=== PATIENT | male | born 1955 | race Caucasian/White ===

== ENCOUNTER 2018-08-26 07:22 | Day surgery (SDC) | payer BC ==
[2018-08-23 11:15] VITALS: BMI 27.2
[2018-08-26 08:55] LABS: #Basophils 0.1 thou/uL (0.0-0.2); #Eosinphils 0.2 thou/uL (0.0-0.7); #Lymphocytes 2.2 thou/uL (1.20-3.40); #Monocytes 0.6 thou/uL (0.11-0.59); #Neutrophils 4.4 thou/uL (1.40-6.50); %Basophils 1.2 % (0.0-1.0); %Eosinophils 2.1 % (0.0-10.0); %Lymphocytes 29.5 % (21.0-51.0); %Monocytes 8.4 % (0.0-10.0); %Neutrophils 58.8 % (42.0-75.0); Hemoglobin 12.6 g/dL (14.0-18.0); Mean Corpuscular HGB CONC 30.4 g/dL (32.0-36.0); Mean Corpuscular Hemoglobin 28.6 pg (27.0-31.0); Mean Platelet Volume 8.1 fL (7.4-10.4); Platelet Count 193 thou/uL (130-400); RBC Distribution Width 11.9 % (11.5-14.5); Red Blood Cell (RBC) Count 4.41 mill/uL (4.70-6.10); White Blood Cell (WBC) Count 7.4 thou/uL (4.8-10.8)
[2018-08-26 09:01] LABS: INR-International Normal Ratio 1.1; Prothrombin Time 14.7 SEC (12.0-14.7)
[2018-08-26 09:07] LABS: PTT 35.1 SEC (22.9-36.1)
[2018-08-26 09:13] LABS: ALT (SGPT) 13 U/L (8-55); AST (SGOT) 14 U/L (5-34); Albumin 3.7 g/dL (3.4-4.8); Alkaline Phosphatase 58 U/L (40-150); Anion Gap 8 mmol/L (10-20); BUN (Urea Nitrogen) 19 mg/dL (8.4-25.7); Bilirubin, Total 0.4 mg/dL (0.2-1.2); Calc. Creatinine Clearance 114 mL/min (70-130); Calcium 9.1 mg/dL (7.8-10.44); Carbon Dioxide 30 mmol/L (23-31); Chloride 105 mmol/L (98-107); Estimated GFR-MDRD Greater than 90; Globulin 2.6 g/dL (2.4-3.5); Glucose 98 mg/dL (80-115); Potassium 4.9 mmol/L (3.5-5.1); Protein, Total 6.3 g/dL (5.8-8.1); Sodium 138 mmol/L (136-145)
[2018-08-26] MEDS ORDERED: PROPOFOL 20 ML ONE (09:26)
--- NOTE | 2018-08-26 10:29 | OP ---
DATE OF PROCEDURE: 08/26/2018 REASON FOR PROCEDURE: Mr. Dumont is a 63-year-old man with history of atrial arrhythmias, prior access ablation in August 2014, who is now back on Xarelto, remote history of left atrial appendage isolation. He has recurrent atypical atrial flutter and here for cardioversion. DESCRIPTION OF PROCEDURE: The patient received propofol by Anesthesia specialist. After adequate level of sedation achieved, a 50 joule synchronized shock promptly converted the patient back to sinus rhythm. CONCLUSIONS: Successful cardioversion. PLAN: Continue Xarelto and routine monitoring. Job ID: [id number]
[2018-08-26] MEDS ORDERED: PROPOFOL 200 MG/20 ML VIAL ONE (15:06)
--- NOTE | 2018-08-27 22:26 | EKG ---
Test Reason : PREOP CARDIOVERSION Blood Pressure : / mmHG Vent. Rate : 081 BPM Atrial Rate : 286 BPM P-R Int : 000 ms QRS Dur : 086 ms QT Int : 386 ms P-R-T Axes : 090 060 052 degrees QTc Int : 448 ms Atrial flutter with variable A-V block Abnormal ECG When compared with ECG of 23-OCT-2014 11:07, Atrial flutter has replaced Atrial fibrillation Nonspecific T wave abnormality no longer evident in Inferior leads T wave amplitude has increased in Anterior leads Confirmed by Aleks KRAUSE ([id number]) on 08/27/2018 10:26:26 PM Referred By: [facility] Confirmed By:Aleks KRAUSE
== END 2018-08-26 11:00 | disposition home or self-care (01) ==
LOC: CCL 07:22
PROVIDERS: ATTEND Internal Medicine Cardiovascular Disease
PROC: 5A2204Z Restoration of Cardiac Rhythm, Single (ICD-10-PCS; principal; 2018-08-26)
DX: I48.4 Atypical atrial flutter (principal); I48.1 Persistent atrial fibrillation; E78.00 Pure hypercholesterolemia, unspecified; Z79.01 Long term (current) use of anticoagulants; Z79.82 Long term (current) use of aspirin; Z79.899 Other long term (current) drug therapy; Z98.890 Other specified postprocedural states
CPT/HCPCS: 80053; 85025; 85610; 85730; 92960; 93005; 93010; J2704

== ENCOUNTER 2019-09-15 17:51 | Inpatient (IN) | payer BC ==
[2019-09-15 18:58] LABS: #Basophils 0.1 thou/uL (0.0-0.2); #Lymphocytes 1.5 thou/uL (1.20-3.40); #Monocytes 0.6 thou/uL (0.11-0.59); #Neutrophils 6.2 thou/uL (1.40-6.50); %Basophils 0.8 % (0.0-1.0); %Eosinophils 0.4 % (0.0-10.0); %Lymphocytes 18.1 % (21.0-51.0); %Monocytes 7.3 % (0.0-10.0); %Neutrophils 73.4 % (42.0-75.0); Hemoglobin 12.6 g/dL (14.0-18.0); Mean Corpuscular HGB CONC 32.6 g/dL (32.0-36.0); Mean Corpuscular Hemoglobin 30.9 pg (27.0-31.0); Mean Corpuscular Volume 94.9 fL (78.0-98.0); Mean Platelet Volume 8.7 fL (7.4-10.4); Platelet Count 195 thou/uL (130-400); RBC Distribution Width 11.6 % (11.5-14.5); Red Blood Cell (RBC) Count 4.07 mill/uL (4.70-6.10); White Blood Cell (WBC) Count 8.5 thou/uL (4.8-10.8)
[2019-09-15 19:19] LABS: ALT (SGPT) 11 U/L (8-55); AST (SGOT) 19 U/L (5-34); Albumin 3.8 g/dL (3.4-4.8); Alkaline Phosphatase 60 U/L (40-110); Anion Gap 11 mmol/L (10-20); BUN (Urea Nitrogen) 15 mg/dL (8.4-25.7); Bilirubin, Total Less than 0.2 mg/dL (0.2-1.2); CK (CPK) 102 U/L (30-200); Calc. Creatinine Clearance 0 mL/min (70-130); Carbon Dioxide 27 mmol/L (23-31); Chloride 103 mmol/L (98-107); Estimated GFR-MDRD 86; Globulin 2.7 g/dL (2.4-3.5); Glucose 150 mg/dL (80-115); Lipase 29 U/L (8-78); Potassium 3.9 mmol/L (3.5-5.1); Protein, Total 6.5 g/dL (5.8-8.1); Sodium 137 mmol/L (136-145)
--- NOTE | 2019-09-15 19:30 | RAD ---
ONE VIEW CHEST: History: Chest pain, back pain. Comparison: None FINDINGS: Cardiac silhouette is magnified by projection. Pulmonary vasculature is within normal limits. The ruthie gs are clear. Osseous structures have a normal appearance. Degenerative changes are seen in the spine . IMPRESSION: No acute cardiopulmonary process. POS: TATA
[2019-09-15] MEDS ORDERED: Ondansetron ODT 4 MG TAB ONE (20:13)
[2019-09-15] MEDS ORDERED: Nitroglycerin 0.4 MG TAB (25 Tab Bottle) PO PRN (20:43)
--- NOTE | 2019-09-15 20:56 | PDOC.HHP ---
Hospitalist HPI - History of Present Illness Chest Pain History of Present Illness: PCP: Olive Servin Project Architect: Aleks Maruqis The patient is a 64/M with PMH significant for atrial fibrillation with ablations x 3 that presents to the ER for the above complaint. The patient reports waking in usual health this morning. Reports riding his bike for approximately 4 miles with his spouse. Then this evening, after drinking some coffee, he developed acute onset of midsternal chest pain, radiating to his back , describes as "tightening up", with associated sob and light headedness. Exacerbated and relieved by nothing. Denies heart palpitations and LE extremity swelling or pain. Denies cough and wheezing. His spouse drove him to [place], where he was evaluated by EMS. There, he was found to be hyperventilating. Reports his bilateral hands felt numb. He was instructed to slow his breathing. Reports given an aspirin and SL nitro x 2 sprays with relief of his symptoms. He was transfered to our ER. Denies fever or chills. Denies any history of COPD or asthma, DVT/PE, denies using any illicit drugs. Denies any abdominal pain, n/v/d. ED Course: VS 98.7F, 113/79, 61, 18, 96%RA Pain 0/[address] elevations CXR no acute process Trop 0.024 CK 102 Allergies: NKDA Home Medications: ASA 81mg po daily Hospitalist ROS - Review of Systems Constitutional: denies: fever, chills, sweats, weakness, malaise, other Eyes: denies: pain, vision change, conjunctivae inflammation, eyelid inflammation, redness, other ENT: denies: ear pain, ear discharge, nose pain, nose discharge, nose congestion , mouth pain, mouth swelling, throat pain, throat swelling, other Respiratory: denies: cough, dry, shortness of breath, hemoptysis, SOB with excertion, pleuritic pain, sputum, wheezing, other Cardiovascular: reports: chest pain (radiating to back), light headedness. denies: palpitations, orthopnea, paroxysmal noc. dyspnea, edema Gastrointestinal: denies: nausea, vomiting, abdominal pain, diarrhea, constipation, melena, hematochezia, other Genitourinary: denies: dysuria, frequency, incontinence, hematuria, retention, other Skin: denies: rash, bruising Neurological: reports: other (bilateral hand numbness). denies: weakness, incoordination, change in speech Hospitalist History - Past Medical History Source: patient Cardiac: reports: AFIB - Past Surgical History Past Surgical History: reports: Cataract Removal, Other (cardiac ablations x 3) - Family History Family History: reports: cardiac disorder - Social History Smoking Status: Never smoker Alcohol: reports: None Drugs: reports: none Living Situation: With Family Occupation: Lives with spouse in [facility], retired Activity level: independent ambulation - Exam General Appearance: NAD, awake alert Eye: anicteric sclera ENT: normocephalic atraumatic Neck: supple, no JVD Heart: RRR, no murmur, no gallops, no rubs, normal peripheral pulses Respiratory: CTAB, no wheezes, no rales, no ronchi, no tachypnea Gastrointestinal: soft, non-tender, normal bowel sounds, no guarding, no rigidity Extremities: no cyanosis, no edema Skin: no rashes Neurological: no focal deficits Musculoskeletal: normal tone, normal strength Psychiatric: normal affect, A&O x 3 Hospitalist Results - Labs Result Diagrams: 09/15/19 18:47 09/15/19 18:47 Lab results: WBC 8.5 thou/uL (4.8-10.8) 09/15/19 18:47 Hgb 12.6 g/dL (14.0-18.0) L 09/15/19 18:47 Hct 38.6 % (42.0-52.0) L 09/15/19 18:47 MCV 94.9 fL (78.0-98.0) 09/15/19 18:47 Plt Count 195 thou/uL (130-400) 09/15/19 18:47 Neutrophils % 73.4 % (42.0-75.0) 09/15/19 18:47 Sodium 137 mmol/L (136-145) 09/15/19 18:47 Potassium 3.9 mmol/L (3.5-5.1) 09/15/19 18:47 Chloride 103 mmol/L (98-107) 09/15/19 18:47 Carbon Dioxide 27 mmol/L (23-31) 09/15/19 18:47 BUN 15 mg/dL (8.4-25.7) 09/15/19 18:47 Creatinine 0.90 mg/dL (0.7-1.3) 09/15/19 18:47 Glucose 150 mg/dL (80-115) H 09/15/19 18:47 Calcium 9.0 mg/dL (7.8-10.44) 09/15/19 18:47 Total Bilirubin Less than 0.2 mg/dL (0.2-1.2) L 09/15/19 18:47 AST 19 U/L (5-34) 09/15/19 18:47 ALT 11 U/L (8-55) 09/15/19 18:47 Alkaline Phosphatase 60 U/L (40-110) 09/15/19 18:47 Creatine Kinase 102 U/L (30-200) 09/15/19 18:47 Troponin I 0.024 ng/mL (< 0.028) 09/15/19 18:47 Serum Total Protein 6.5 g/dL (5.8-8.1) 09/15/19 18:47 Albumin 3.8 g/dL (3.4-4.8) 09/15/19 18:47 Lipase 29 U/L (8-78) 09/15/19 18:47 - EKG Interpretation EKG: NSR - Radiology Interpretation Chest x-ray Status: report reviewed by nh Hospitalist H&P A/P - Problem (1) Chest pain Code(s): R07.9 - CHEST PAIN, UNSPECIFIED Status: Acute Assessment and Plan: Admit to telemetry floor, observation status Expected length of stay < 2 midnights Upon exam, chest pain resolved, trop IND. HEART SCORE 2, low risk Trend troponins NM stress test Echocardiogram Consult cardiology Continue ASA Check TSH, BNP, FLP, Mag NPO after midnight (2) Dyspnea Code(s): R06.00 - DYSPNEA, UNSPECIFIED Status: Acute Assessment and Plan: CXR negative Likely Secondary to Problem #1 (3) History of atrial fibrillation Code(s): Z86.79 - PERSONAL HISTORY OF OTHER DISEASES OF THE CIRCULATORY SYSTEM Status: Chronic Assessment and Plan: History of ablations x 3 EKG NSR Will order echocardiogram and consult cardiology Will Continue cardiac monitoring. - Plan Plan: Consult walking program Pepcid GI prophylaxis SCDs for DVT prophylaxis Full Code DPOA is Esperanza Dumont at [phone] Velasco
[2019-09-15] MEDS ORDERED: Aspirin 325 MG TAB PO SCH (21:00)
[2019-09-15 22:22] LABS: Troponin I 0.256 ng/mL (< 0.028)
[2019-09-15 22:48] VITALS: BMI 26.4
[2019-09-16] MEDS ORDERED: Enoxaparin Sodium 40 MG/0.4 ML SYRINGE SC SCH (00:45)
[2019-09-16] MEDS: Famotidine 20 MG TAB PO SCH ×3 (01:42→20:11)
[2019-09-16 01:45] LABS: Troponin I 1.086 ng/mL (< 0.028)
[2019-09-16] MEDS: Nitroglycerin 2% Ointment 1 INCH/1 GM Packet TOP SCH ×3 (01:54→17:19)
[2019-09-16] MEDS: Sodium Chloride 0.9% 1,000 ML IV SCH ×2 (01:54→21:15)
[2019-09-16] MEDS ORDERED: Enoxaparin Sodium 80 MG/0.8 ML SYRINGE SC SCH ×2 (02:00→09:00)
[2019-09-16] MEDS ORDERED: Atorvastatin Calcium 40 MG TAB PO SCH ×2 (02:00→21:00)
[2019-09-16 04:53] LABS: #Eosinphils 0.1 thou/uL (0.0-0.7); #Lymphocytes 2.5 thou/uL (1.20-3.40); #Monocytes 0.6 thou/uL (0.11-0.59); #Neutrophils 4.8 thou/uL (1.40-6.50); %Basophils 0.5 % (0.0-1.0); %Eosinophils 0.9 % (0.0-10.0); %Lymphocytes 31.2 % (21.0-51.0); %Monocytes 7.5 % (0.0-10.0); %Neutrophils 59.9 % (42.0-75.0); Hemoglobin 12.8 g/dL (14.0-18.0); Mean Corpuscular HGB CONC 32.6 g/dL (32.0-36.0); Mean Platelet Volume 8.3 fL (7.4-10.4); Platelet Count 198 thou/uL (130-400); RBC Distribution Width 11.7 % (11.5-14.5); Red Blood Cell (RBC) Count 4.14 mill/uL (4.70-6.10); White Blood Cell (WBC) Count 8.1 thou/uL (4.8-10.8)
[2019-09-16 05:27] LABS: Anion Gap 12 mmol/L (10-20); BUN (Urea Nitrogen) 13 mg/dL (8.4-25.7); Calc. Creatinine Clearance 116 mL/min (70-130); Calcium 9.2 mg/dL (7.8-10.44); Carbon Dioxide 27 mmol/L (23-31); Cardiac Risk 3.2 (Less than 4.5); Chloride 105 mmol/L (98-107); Cholesterol 180 mg/dl (< 200 Desired); Estimated GFR-MDRD Greater than 90; Glucose 101 mg/dL (80-115); HDL Cholesterol 56 mg/dL (>60 Neg Risk); LDL Cholesterol, Calculated 114 mg/dL; Potassium 3.5 mmol/L (3.5-5.1); Sodium 140 mmol/L (136-145); Triglycerides 51 mg/dL (Less than 150)
[2019-09-16] MEDS ORDERED: Aspirin 325 mg Enteric Coated Tablet PO SCH (09:00)
[2019-09-16] MEDS ORDERED: Iopamidol 370 76% 50 ML VIAL FS ONE (09:21)
[2019-09-16] MEDS ORDERED: Iopamidol 370 76% 100 ML VIAL ONE (09:21)
[2019-09-16] MEDS: Acetaminophen 325 MG TAB PO PRN ×2 (11:27→17:19)
--- NOTE | 2019-09-16 12:11 | PDOC.HOSPP ---
- Subjective Encounter Date: 09/16/19 Encounter Time: 12:01 Subjective: Mr. Dumont was seen today in follow-up of Chest pain and NSTEMI. He denies any chest pain, shortness of breath. - Objective Vital Signs & Weight: Vital Signs (12 hours) Temp Pulse Resp BP Pulse Ox 09/16/19 07:47 98.1 F 57 L 16 160/77 H 98 09/16/19 04:00 98 F 61 16 118/76 98 09/16/19 02:00 177/86 H 09/16/19 00:21 99 Weight Weight 184 lb I&O: 09/15/19 09/16/19 09/17/19 06:59 06:59 06:59 Intake Total 562.5 Balance 562.5 Result Diagrams: 09/16/19 04:34 09/16/19 04:34 Hospitalist ROS - Medication Medications: Active Medications Generic Name Dose Route Start Last Admin Trade Name Freq PRN Reason Stop Dose Admin Acetaminophen 650 mg 09/15/19 20:46 09/16/19 11:27 Tylenol PO 650 mg Q4H PRN Administration Headache/Fever/Mild Pain (1-3) Enoxaparin Sodium 80 mg 09/16/19 09:00 09/16/19 09:08 Lovenox SC Not Given 0900,2100 HAMLET Famotidine 20 mg 09/15/19 21:00 09/16/19 08:20 Pepcid PO Not Given BID HAMLET Sodium Chloride 1,000 mls @ 75 mls/hr 09/15/19 23:59 09/16/19 01:54 Normal Saline 0.9% IV 1,000 mls .[id number] HAMLET Administration Nitroglycerin 0.5 inch 09/16/19 02:00 09/16/19 10:38 Nitro-Bid 2% Ointment TOP Not Given 0200,1000,1800 HAMLET - Exam Eye: PERRL Heart: RRR, no murmur, no gallops, no rubs, normal peripheral pulses Respiratory: CTAB, no wheezes, no rales Gastrointestinal: soft, non-tender, non-distended, normal bowel sounds Extremities: no cyanosis, no clubbing, no edema Hosp A/P (1) NSTEMI (non-ST elevated myocardial infarction) Code(s): I21.4 - NON-ST ELEVATION (NSTEMI) MYOCARDIAL INFARCTION Status: Acute (2) Chest pain Code(s): R07.9 - CHEST PAIN, UNSPECIFIED Status: Acute (3) Dyspnea Code(s): R06.00 - DYSPNEA, UNSPECIFIED Status: Acute (4) History of atrial fibrillation Code(s): Z86.79 - PERSONAL HISTORY OF OTHER DISEASES OF THE CIRCULATORY SYSTEM Status: Chronic - Plan * NSTEMI- patient currently does not have symptoms * Continue Lovenox, aspirin, Atorvastatin * Heart rate is already, low- and will not require beta-cheyenne * AFIB - he is in sinus, and he is past ablation X3 * Await Cardiology evaluation
--- NOTE | 2019-09-16 14:40 | CON ---
DATE OF CONSULTATION: REASON FOR CONSULTATION: Unstable angina. HISTORY OF PRESENT ILLNESS: Mr. Dumont is a 64-year-old gentleman, who was last seen by Dr. Jaquan Marquis greater than five years ago. He recently presented with acute onset chest pain. This began after exercise. The pain lasted for an hour. He proceeded to the emergency room with the above. His initial troponin was negative. His followup troponin was greater than 1.0. He is currently pain free. He did receive a dose of Lovenox at 2 a.m. PAST MEDICAL HISTORY: Atrial fibrillation, status post ablation and cardioversion. SURGICAL HISTORY: Cataract removal. FAMILY HISTORY: Positive for CAD. SOCIAL HISTORY: No current tobacco or alcohol use. REVIEW OF SYSTEMS: A 10-point review of systems is reviewed as above, otherwise negative. PHYSICAL EXAMINATION: GENERAL: Patient is a pleasant male, who is in no acute distress. The patient appears their stated age. VITAL SIGNS: Blood pressure 159/78, pulse 55, temperature 97.7. NEUROLOGIC: The patient is alert and oriented x3 with no focal neurologic deficits. HEENT: Sclerae without icterus. Mouth has moist mucous membranes with normal pallor. NECK: No JVD. Carotid upstroke brisk. No bruits bilaterally. LUNGS: Clear to auscultation with unlabored respirations. BACK: No scoliosis or kyphosis. CARDIAC: Regular rate and rhythm with normal S1 and S2. No S3 or S4 noted. No significant rubs, murmurs, thrills, or gallops noted throughout the precordium. PMI is not displaced. There is no parasternal heave. ABDOMEN: Soft, nontender, nondistended. No peritoneal signs present. No hepatosplenomegaly. No abnormal striae. EXTREMITIES: 2+ femoral and 2+ dorsalis pedis pulses. No cyanosis, clubbing, or edema. SKIN: No gross abnormalities. PERTINENT LABORATORY DATA: Hemoglobin 12.8. Peak troponin 1.086. Initial troponin 0.256. Creatinine 0.78. EKG: Normal sinus rhythm, normal EKG. IMPRESSION: 1. Unstable angina. 2. History of atrial fibrillation. RECOMMENDATIONS: Mr. Dumont' symptoms strongly suggest unstable angina. His symptoms are acute in onset, lasting for 1 hour. His troponin did increase to 1.086. At this point, I recommend coronary angiography and possible PCI. I discussed the procedure in full detail with Mr. Pearsongs. The risks of the procedure were also discussed. The risks of the procedure include but are not limited to the following: , stroke, IA, need for emergency surgery, loss of limb, bleeding, and infection, as well as a reaction to the dye causing kidney failure and needing long-term dialysis. I also discussed the risks of PCI to include all of the above including coronary dissection and perforation in addition to acute stent thrombosis and restenosis. All questions about the procedure were answered. Given the above, the patient agreed to proceed with coronary angiography and possible PCI. All questions were answered. Also, discussed drug coated with nondrug coated stent placement. There were no contraindications and we will proceed if needed. Further recommendations pending the above. Job ID: [id number]
[2019-09-16] MEDS: Aspirin 81 mg Enteric Coated Tablet PO SCH (15:07)
[2019-09-16] MEDS ORDERED: hydrALAZINE 20 MG/ML VIAL ONE (15:38)
[2019-09-16] MEDS ORDERED: Acetaminophen/Codeine 30-300mg Tablet PO PRN ×2 (15:50)
[2019-09-16] MEDS ORDERED: Sodium Chloride 0.9% 200 ML IV PRN (15:50)
[2019-09-16] MEDS ORDERED: Nitroglycerin 0.4 MG TAB (25 Tab Bottle) SL PRN (15:50)
[2019-09-16] MEDS ORDERED: Sodium Chloride 0.9% 1,000 ML IV SCH (16:00)
[2019-09-16] MEDS ORDERED: Dorzolamide HCl 2% Ophth Soln 10 ml Bottle EA EYE SCH (23:15)
[2019-09-16] MEDS ORDERED: Latanoprost 0.005% Ophth Soln 2.5 ml Bottle EA EYE SCH (23:15)
[2019-09-17] MEDS: Nitroglycerin 2% Ointment 1 INCH/1 GM Packet TOP SCH ×2 (01:46→09:07)
[2019-09-17] MEDS: Sodium Chloride 0.9% 1,000 ML IV SCH (03:54)
[2019-09-17] MEDS ORDERED: Dorzolamide HCl 2% Ophth Soln 10 ml Bottle EA EYE SCH (09:00)
--- NOTE | 2019-09-17 09:07 | PRG ---
DATE OF SERVICE: 09/17/2019 SUBJECTIVE: Mr. Dumont is doing well. No current complaints. He recently underwent coronary angiography and was found to have mild coronary artery disease. No significant . His D-dimer was also felt to be less than 0.27. OBJECTIVE: GENERAL: Patient is a pleasant male who is in no acute distress. The patient appears their stated age. VITAL SIGNS: Blood pressure 159/79, pulse 58, and temperature 98.4. NEUROLOGIC: The patient is alert and oriented x3 with no focal neurologic deficits. HEENT: Sclerae without icterus. Mouth has moist mucous membranes with normal pallor. NECK: No JVD. Carotid upstroke brisk. No bruits bilaterally. LUNGS: Clear to auscultation with unlabored respirations. BACK: No scoliosis or kyphosis. CARDIAC: Regular rate and rhythm with normal S1 and S2. No S3 or S4 noted. No significant rubs, murmurs, thrills, or gallops noted throughout the precordium. PMI is not displaced. There is no parasternal heave. ABDOMEN: Soft, nontender, nondistended. No peritoneal signs present. No hepatosplenomegaly. No abnormal striae. EXTREMITIES: 2+ femoral and 2+ dorsalis pedis pulses. No cyanosis, clubbing, or edema. SKIN: No gross abnormalities. DIAGNOSTIC DATA: Echo Doppler, normal LVEF. IMPRESSION: Elevated troponin. RECOMMENDATIONS: Mr. Dumont has no current risk factors for underlying coronary artery disease. The most likely situation is embolic phenomenon from previous history of atrial fibrillation status post ablation. He recently stopped his Xarelto in July. I discussed the case with Dr. Yosvany Oliveira, who agrees. The elevated troponin was felt to be type 2 secondary to embolic event. At this point, recommend anticoagulation therapy with Xarelto 20 mg q.a.m. Plan is to follow up with Mr. Dumont in one week. Okay from my standpoint for discharge. Job ID: [id number]
[2019-09-17] MEDS: Famotidine 20 MG TAB PO SCH (09:17)
[2019-09-17] MEDS: Aspirin 81 mg Enteric Coated Tablet PO SCH (09:17)
[2019-09-17 11:54] VITALS: BP 147/71; TEMP 98.7
--- NOTE | 2019-09-17 13:26 | EKG ---
Test Reason : Blood Pressure : / mmHG Vent. Rate : 063 BPM Atrial Rate : 063 BPM P-R Int : 196 ms QRS Dur : 092 ms QT Int : 452 ms P-R-T Axes : 031 028 054 degrees QTc Int : 462 ms Normal sinus rhythm Normal ECG Confirmed by FELICE TOURE ([id number]), mapping editor CARLTON WALDEN ([id number]) on 09/17/2019 1:25:42 PM Referred By: Confirmed By:FELICE TOURE
--- NOTE | 2019-09-17 13:56 | PDOC.HOSPP ---
- Subjective Encounter Date: 09/17/19 Encounter Time: 13:54 Subjective: Mr. Dumont was seen today in follow-up of NSTEMI. He does not have any new complaints. - Objective Vital Signs & Weight: Vital Signs (12 hours) Temp Pulse Pulse Pulse Resp BP BP 09/17/19 11:53 98.7 F 55 L 16 09/17/19 09:52 64 62 177/79 H 203/95 H 09/17/19 07:43 98.4 F 58 L 16 09/17/19 04:00 98.4 F 54 L 16 BP Pulse Ox 09/17/19 11:53 147/71 H 97 09/17/19 09:52 09/17/19 07:43 159/79 H 97 09/17/19 04:00 159/78 H 98 Weight Weight 184 lb I&O: 09/16/19 09/17/19 09/18/19 06:59 06:59 06:59 Intake Total 562.5 Balance 562.5 Result Diagrams: 09/16/19 04:34 09/16/19 04:34 Hospitalist ROS - Medication Medications: Active Medications Generic Name Dose Route Start Last Admin Trade Name Freq PRN Reason Stop Dose Admin Acetaminophen 650 mg 09/15/19 20:46 09/16/19 17:19 Tylenol PO 650 mg Q4H PRN Administration Headache/Fever/Mild Pain (1-3) Aspirin 81 mg 09/16/19 09:00 09/17/19 09:17 Ecotrin PO 81 mg DAILY HAMLET Administration Atorvastatin Calcium 40 mg 09/16/19 21:00 09/16/19 20:11 Lipitor PO 40 mg HS HAMLET Administration Dorzolamide HCl 1 drop 09/17/19 09:00 09/17/19 09:16 Trusopt 2% Ophth Soln EA EYE 1 drop BID HAMLET Administration Famotidine 20 mg 09/15/19 21:00 09/17/19 09:17 Pepcid PO Not Given BID HAMLET Sodium Chloride 1,000 mls @ 75 mls/hr 09/15/19 23:59 09/17/19 03:54 Normal Saline 0.9% IV 1,000 mls .[id number] HMALET Administration Nitroglycerin 0.5 inch 09/16/19 02:00 09/17/19 09:07 Nitro-Bid 2% Ointment TOP Not Given 0200,1000,1800 HAMLET - Exam Eye: PERRL Heart: RRR, no murmur, no gallops, no rubs, normal peripheral pulses Respiratory: CTAB, no wheezes, no rales, no ronchi, normal chest expansion, no tachypnea, normal percussion Gastrointestinal: soft, non-tender, non-distended, normal bowel sounds, no palpable masses, no hepatomegaly Extremities: no cyanosis Hosp A/P (1) NSTEMI (non-ST elevated myocardial infarction) Code(s): I21.4 - NON-ST ELEVATION (NSTEMI) MYOCARDIAL INFARCTION Status: Acute (2) Chest pain Code(s): R07.9 - CHEST PAIN, UNSPECIFIED Status: Acute (3) Dyspnea Code(s): R06.00 - DYSPNEA, UNSPECIFIED Status: Acute (4) History of atrial fibrillation Code(s): Z86.79 - PERSONAL HISTORY OF OTHER DISEASES OF THE CIRCULATORY SYSTEM Status: Chronic - Plan * NSTEMI- due to an embolic event * He has been placed back on Xarelto, which he tells me he has at home * Stable for discharge home
--- NOTE | 2019-09-17 15:59 | DIS ---
DATE OF ADMISSION: 09/15/2019 DATE OF DISCHARGE: 09/17/2019 PRIMARY CARE PHYSICIAN: Clint Servin MD DISCHARGE DISPOSITION: Home. DISCHARGE DIAGNOSES: 1. Non-ST myocardial infarction elevation likely due to an embolic phenomenon. 2. Dyslipidemia. 3. Atrial fibrillation, on anticoagulation. DISCHARGE MEDICATIONS: 1. Aspirin 81 mg daily. 2. Xarelto 20 mg daily. 3. Xalatan 0.005% drop in each eye at bedtime. 4. Rhopressa one drop in each eye at bedtime. IMAGING DONE DURING HOSPITAL STAY: The patient had an echocardiogram in which the ejection fraction was estimated at 55% to 60%. There was some mild mitral regurgitation present. The patient had a cardiac catheterization in which it was reported that there was no flow-limiting disease. CODE STATUS: Full code. ALLERGIES: TO BRIMONIDINE AND TIMOLOL. HOSPITAL COURSE: Mr. Dumont is a pleasant 64-year-old gentleman, who was admitted to the hospital after experiencing chest pain. This started about 5 hours after he was bike riding with his . The full details of which are detailed in the history and physical. He was concerned due to the nature of the pain and came to the ER. He was placed in observation for a cardiac evaluation. Serial troponins were performed and his troponin peaked at 1.086. Cardiology was consulted and he underwent cardiac catheterization. There was no evidence of any flow-limiting disease. However, Dr. Ferrari felt that given his history of atrial fibrillation, he may have had an embolic event to the coronary arteries. He had been on Xarelto before but had been taken off. He will be placed back on Xarelto at this time. We also recommended that he be placed on a low-dose statin for his cholesterol as his LDL was 114. The patient refused this and says that he is going to try diet and exercise first. He does not want to be on long-term cholesterol medication. His heart rate was already in the 50s and for this reason, a beta-cheyenne was not added. He is to follow up with his primary care physician in 1 to 2 weeks. Job ID: [id number]
[2019-09-17] MEDS ORDERED: Rivaroxaban 10 MG TAB PO SCH (18:00)
[2019-09-17] MEDS ORDERED: Latanoprost 0.005% Ophth Soln 2.5 ml Bottle EA EYE SCH (21:00)
--- NOTE | 2019-09-18 09:56 | PQF ---
JAVIER LIN TONI MD [id number] [facility] [place] [id number] CLINICAL DOCUMENTATION CLARIFICATION FORM: POST DISCHARGE Addendum to original discharge summary date: ____ Late entry note date: __ DATE:09/18/2019 ATTN: Thuan Quiroz Please exercise your independent, professional judgment in responding to the clarification form. Clinical indicators are provided on the bottom of this form for your review Please check appropriate box(s): [ X ] Paroxysmal Atrial Fibrillation [ ] Persistent Atrial Fibrillation [ ] Chronic Atrial Fibrillation (includes permanent Atrial Fibrillation) [ ] Atrial fib/Atrial flutter [ ] Other diagnosis [ ] Unable to determine For continuity of documentation, please document condition throughout progress notes and discharge summary. Thank You. CLINICAL INDICATORS - SIGNS / SYMPTOMS / LABS Vital sign 09/15 BP 203/95, Pulse 64, Resp 16 EKG Result 09/14 - NSR, no ST elevation DS 09/[address] Mcnair Discharge Diagnoses: Atrial Fibrillation, on anticoagulation PN 09/[address] Mcnair AFIB he is in sinus, and he is past ablation x3 H&P p1 09/14 Dr Dennis Pt developed acute onset of midsternal chest pain, radiating to his back RISK FACTORS H&P p1 09/14 64 year-old Male H&P p1 09/14 Afib s/p 3x Ablation H&P p1 09/14 HLD DS p1 09/16 NSTEMI due to embolic phenomenon TREATMENTS: Cardiac Consultation 09/15 Oscar Ferrari MD Cardiac Catheterization 09/15 Oscar Ferrari MD Mar 09/14 IVF NS 1L JUL 22 Aspirin 81 mg oral JUL 22 Lipitor 40 mg oral JUL 22 Nitroglycerin 0.5 patch EKG 09/14 TTE 09/15 Oscar Ferrari MD (This form is maintained as a part of the permanent medical record) 2014 [employer]. All Rights Reserved [email or web address]
--- NOTE | 2019-09-18 09:58 | PQF ---
JAVIER LIN TONI MD [id number] [facility] [place] [id number] CLINICAL DOCUMENTATION CLARIFICATION FORM: POST DISCHARGE Addendum to original discharge summary date: ____ Late entry note date: __ DATE:09/18/2019 ATTN: Thuan Quiroz Please exercise your independent, professional judgment in responding to the clarification form. Clinical indicators are provided on the bottom of this form for your review Please check appropriate box(s): [ X] Primary/Essential Hypertension [ ] Emergency [ ] Urgency [ ] Crisis [ ] Hypertensive Heart Disease [ ] Transient Hypertension [ ] Secondary Hypertension (please specify etiology, if known) [ ] Other diagnosis [ ] Unable to determine In addition, please specify: Present on Admission (POA): [ X ] Yes [ ] No [ ] Unable to determine For continuity of documentation, please document condition throughout progress notes and discharge summary. Thank You. CLINICAL INDICATORS - SIGNS / SYMPTOMS / LABS Vital sign 09/14 BP 140/108, Pulse 61, Resp 18 Vital sign 09/15 BP 137/107, Pulse 65, Resp 16 Vital sign 09/16 BP 203/95, Pulse 64, Resp 16 EKG Result 09/15- NSR, no ST elevation H&P p1 09/14 Dr Dennis Pt developed acute onset of midsternal chest pain, radiating to his back H&P p1 09/14 Dr Dennis he was found to be hyperventilating Discharge summary p1 09/[address] myocardial infarction elevation likely due to an embolic phenomenon RISK FACTORS H&P p1 09/14 64 year-old Male H&P p1 09/14 Afib s/p 3x Ablation DS 09/16 Atrial Fibrillation DS 09/16 Dyslipidemia DS 09/16 NSTEMI due to embolic phenomenon TREATMENTS: Cardiac Consultation 09/15 Oscar Ferrari MD Cardiac Catheterization 09/15 Oscar Ferrari MD Jul 22 IVF NS 1L JUL 22 Aspirin 81 mg oral JUL 22 Lipitor 40 mg oral JUL 22 Nitroglycerin 0.5 patch EKG 09/14 TTE 09/15 Oscar Ferrari MD (This form is maintained as a part of the permanent medical record) 2014 [employer]. All Rights Reserved [email or web address]
== END 2019-09-17 15:23 | disposition home or self-care (01) | DRG 282 ==
LOC: ERS 17:51 → OBSVTOIN 20:30 → 2SE 20:30
PROVIDERS: ADMIT Family Medicine; ATTEND Internal Medicine
PROC: 4A023N7 Measurement of Cardiac Sampling and Pressure, Left Heart, Percutaneous Approach (ICD-10-PCS; principal; 2019-09-16)
PROC: B2111ZZ Fluoroscopy of Multiple Coronary Arteries using Low Osmolar Contrast (ICD-10-PCS; 2019-09-16)
PROC: B2151ZZ Fluoroscopy of Left Heart using Low Osmolar Contrast (ICD-10-PCS; 2019-09-16)
DX: I21.4 Non-ST elevation (NSTEMI) myocardial infarction (principal); E78.5 Hyperlipidemia, unspecified; I48.91 Unspecified atrial fibrillation; I25.110 Atherosclerotic heart disease of native coronary artery with unstable angina pectoris; Z88.8 Allergy status to other drugs, medicaments and biological substances; Z79.82 Long term (current) use of aspirin; Z98.49 Cataract extraction status, unspecified eye
CPT/HCPCS: 36415; 71045; 76942; 80048; 80053; 80061; 82550; 83690; 83735; 83880; 84443; 84484; 85025; 85379; 93005; 93306; 93458; 93798; 94760; C1769; J0360; J1644; J1650; Q0162; Q9967